=== PATIENT | female | born 1955 | race American Indian/Alaskan Native ===

== ENCOUNTER 2017-02-20 09:59 | Outpatient (CLI) | payer MEDICARE ==
--- NOTE | 2017-02-22 11:44 | PET Report ---
PET/CT:02/20/17 09:59:00 CLINICAL: Breast cancer staging. RADIOPHARMACEUTICAL: 15.0mCi F18-FDG. COMPARISON: None. TECHNIQUE- Following intravenous injection of F-18 FDG and an approximately 60 minute uptake period, CT and PET images from the mid skull to the upper thighs were acquired with the patient in the fasted state. No contrast was administered. The CT protocol used for this PET CT study is designed for attenuation correction and anatomic localization of PET abnormalities. This snowboarding instructor CT is not desired to produce and cannot replace, [id number] diagnostic CT scans with specific imaging protocols for different body parts and indications. Plasma glucose at the time of this test: 127g/dl. The standardized uptake values (SUV) are normalized to patient body weight and indicate the highest activity concentration (SUV max) in a given disease site. FINDINGS: Brain--Physiologic FDG uptake in the visualized regions of the brain. Neck--Physiologic FDG uptake . Chest--An irregular left lower outer breast mass measures 1.8 cm with minimal FDG uptake in SUV 1.5. It contains a biopsy clip. A second clip is identified in the upper outer left breast with no FDG uptake at. Mild skin thickening of the inferior left breast. Physiologic FDG uptake in mediastinal blood pool and myocardium. Lungs--No abnormal uptake. No pulmonary nodule or mass. Pleura/pericardium--No abnormal uptake. Thoracic nodes--Several mildly enlarged left axillary lymph nodes with mild FDG uptake. The largest measures 1.7 x 1.5 cm with SUV 2.7. Several smaller left axillary lymph nodes have lower FDG uptake. A left infraclavicular lymph node measures 1.7 x 1.2 cm with SUV 2.6. Hepatobiliary--No abnormal uptake. Liver background SUV mean, as a reference for comparing FDG studies, is 3.8 . No liver mass. Spleen--No abnormal uptake. Pancreas--No abnormal uptake. Adrenal Glands--No abnormal uptake. Kidneys/Ureters/Bladder--No abnormal uptake. Several bilateral small nonobstructive renal calculi versus vascular calcifications. The renal collecting systems are nondilated. Abdominopelvic Nodes--No abnormal uptake. Bowel/Peritoneum/Mesentery--No abnormal uptake. Pelvic organs--No abnormal uptake. A mixed density oval midline pelvic mass measures 8.6 x 6.6 x 7.1 cm. It is predominantly fat and contains a 3 cm calcification. The appearance is typical of a benign dermoid arising from the left ovary. Normal right ovary with small follicles. Normal uterus. The uterus is displaced anteriorly and to the right by the mass. Bones/Soft Tissues--No abnormal uptake. No suspicious bone lesion. IMPRESSION- 1. Several suspicious left axillary lymph nodes and one suspicious left infraclavicular lymph node in the anterior chest wall. 2. A 1.8 cm left breast mass with minimal FDG uptake. 3. No evidence of pulmonary, hepatic or skeletal metastasis. 4. An 8.6 cm dermoid cyst of the left ovary. 5. Bilateral nonobstructive renal calculi versus vascular calcifications.
== END 2017-02-20 10:00 | disposition home or self-care (01) ==
LOC: PET 09:59
PROVIDERS: ATTEND Internal Medicine Hematology & Oncology
DX: C50.412 Malignant neoplasm of upper-outer quadrant of left female breast (principal); D27.1 Benign neoplasm of left ovary; R59.9 Enlarged lymph nodes, unspecified; N85.4 Malposition of uterus
CPT/HCPCS: 78815; 82962; A9552

== ENCOUNTER 2017-07-08 09:00 | Outpatient (CLI) | payer MEDICARE ==
--- NOTE | 2017-07-08 11:06 | Mammography Report ---
BONE DEXA:07/08/17 09:00:00 CLINICAL: Postmenopausal. No comparison. TECHNIQUE: Two site bone DEXA performed on an Hologic scanner. FINDINGS: The average BMD of the lumbar spine L1-L4 is 1.017g/cm squared with a T-score of -1.2 and a Z-score of +0.5. The average BMD of the left hip is 0.697g/cm squared with a T-score of -2.1 and a Z-score of -1.3. The left femoral neck BMD is 0.581g/cm squared with a T score of -2.6 and a Z score of -1.4. IMPRESSION: 1. WHO classification: Osteopenia with increased fracture risk based on lumbar spine measurements. 2. WHO classification: Osteoporosis with high fracture risk based on left femoral neck measurements. RECOMMENDATION: Clinical correlation and routine screening. DEFINITIONS: BMD = Bone Mineral Density T-score = BMD related to mean peak bone mass of young adult (mean expressed in Standard Deviation) Z-score = Age matched BMD expressed in SD World Health Organization (WHO) Diagnostic Criteria Normal T-score > -1 SD Osteopenia T-score between -1 and -2.4 SD Osteoporosis T-score -2.5 SD or below NOTE: BMD is not the only risk factor for fracture. One should also consider factors such as the patient's age, risk of falling, previous osteoporotic fracture, family history of osteoporotic fractures, current smoker, and low body weight. Z-scores are not calculated if >80 years of age.
== END 2017-07-08 09:01 | disposition home or self-care (01) ==
LOC: SPVWC 09:00
PROVIDERS: ATTEND Internal Medicine Hematology & Oncology
DX: M81.0 Age-related osteoporosis without current pathological fracture (principal); M85.88 Other specified disorders of bone density and structure, other site; C50.412 Malignant neoplasm of upper-outer quadrant of left female breast; Z78.0 Asymptomatic menopausal state; Z79.811 Long term (current) use of aromatase inhibitors
CPT/HCPCS: 77080

== ENCOUNTER 2018-01-21 12:09 | Outpatient (CLI) | payer MEDICARE ==
--- NOTE | 2018-01-21 14:08 | Cat Scan Report ---
CTA chest: History: Malignant neoplasm of upper upper quadrant. PE protocol. 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 No evidence of pulmonary embolism. No pleural pericardial effusion. No mediastinal mass or adenopathy. No acute lung changes. Impression: No evidence of pulmonary embolism. No acute lung changes.
== END 2018-01-21 12:10 | disposition home or self-care (01) ==
LOC: CT 12:09
PROVIDERS: ATTEND Internal Medicine Hematology & Oncology
DX: C50.412 Malignant neoplasm of upper-outer quadrant of left female breast (principal); I74.11 Embolism and thrombosis of thoracic aorta; I70.0 Atherosclerosis of aorta
CPT/HCPCS: 36415; 71275; 82565; 84520; Q9967